=== PATIENT | male | born 1980 | race Caucasian/White ===

== ENCOUNTER 2018-08-23 00:30 | Emergency (ER) | payer OTHER ==
[~2018-08-23] VITALS: Ht 190.5 cm; Wt 95.5 kg
[2018-08-23] MEDS ORDERED: MIRT15 PO (00:45)
[2018-08-23 02:03] VITALS: BP 148/85
== END 2018-08-23 02:34 | disposition home or self-care (01) ==
LOC: EMS 00:34 → EDBD 00:34 → EMS 02:34
DX: R00.2 Palpitations (principal); T43.95XA Adverse effect of unspecified psychotropic drug, initial encounter; F17.210 Nicotine dependence, cigarettes, uncomplicated; F32.9 Major depressive disorder, single episode, unspecified; Z91.013 Allergy to seafood; Z88.8 Allergy status to other drugs, medicaments and biological substances; Z79.899 Other long term (current) drug therapy; Y92.89 Other specified places as the place of occurrence of the external cause
CPT/HCPCS: 93005